=== PATIENT | male | born 1950 | race Caucasian/White ===

== ENCOUNTER → 2016-06-09 | Outpatient (CLI) | payer MEDICARE, OTHER ==
[~2016-06-09] MED LIST: ACIDOPHILUS1 EACH PO; AFRIN) (GENASAL15 ML NS; AMOX TR-K CLV1 EAC4 PO; B COMPLETE1 EACH PO; CALCIUM 600 +1 EAC6 PO; COLACE100 MG PO; COPPER2 M1 PO; DELTASONE10 MG PO; ENTERAGAM POWDER5 GM PO; ENTOCORT 3 MG3 MG PO; FLONASE 50 MCG/16 GM NOSE; HYTRIN **IA 9/2 MG PO; K-TAB ER10 MEQ PO; LASIX40 MG PO; MEN'S MULTI-VI1 EACH PO; NORCO 5-325 TA1 EACH PO; VITAMIN A10000 UNIT PO; VITAMIN B-12500 MCG PO; VITAMIN D-32000 UNI1 PO; VITAMIN D3 PO; ZINCATE (50 MG220 MG PO
== END | disposition disaster alternative care site (69) ==
LOC: GRAD 15:26
DX: J32.9 Chronic sinusitis, unspecified (principal); J32.4 Chronic pansinusitis

== ENCOUNTER 2016-07-10 05:58 | Observation (INO) | payer MEDICARE, OTHER ==
[~2016-07-10] VITALS: Ht 175.3 cm; Wt 64.6 kg
--- NOTE | ~2016-07-10 | OR ---
PATIENT'S NAME: EVANS GORMAN [facility] AGE: 65 Y [address] ROOM: [place] [address] LOCATION: [facility] – [place] ADMIT DATE: 07/10/2016 OR/Procedure Report DISCHARGE DATE: FAMILY PHYSICIAN: Shakir Mcrae MD ATTENDING PHYSICIAN: LEILA DAILY SURGEON: Leila Daily MD STAGING TECHNICIAN: None. DATE OF PROCEDURE: 07/10/2016 PREOPERATIVE DIAGNOSES: 1. Chronic pansinusitis. 2. Chronic lymphocytic leukemia. POSTOPERATIVE DIAGNOSES: 1. Chronic pansinusitis. 2. Chronic lymphocytic leukemia. PROCEDURES PERFORMED: 1. Endoscopic bilateral maxillary antrostomies with tissue removal. 2. Bilateral frontal sinusotomies with tissue removal. 3. Bilateral total ethmoidectomies. 4. Bilateral sphenoidotomies with tissue removal. 5. Placement of bilateral Propel mini stents in the frontal recesses. 6. Stealth navigation. ANESTHESIA: General endotracheal. COMPLICATIONS: None. BLOOD LOSS: 400 mL. SPECIMEN: Sinus contents, left and right. FINDINGS: Minimal blood loss for the first half of the case; however, blood loss became more excessive near the lateral portion of the case. This did not preclude completion of all necessary parts of the case. INDICATION: The patient is a 65-year-old male with a history of chronic pansinusitis and chronic cough, who was identified by his ip counsel to have chronic sinus disease and referred for further workup. We identified significant pansinus disease on CT scanning and discussed surgical treatment in addition to medications. The patient provided informed consent for this. DESCRIPTION OF PROCEDURE: The patient was brought from the preoperative area to the operating suite and placed on table in supine position. All pressure PATIENT'S NAME: EVANS GORMAN [facility] AGE: 65 Y [address] ROOM: [place] [address] LOCATION: [facility] [place] ADMIT DATE: 07/10/2016 OR/Procedure Report DISCHARGE DATE: FAMILY PHYSICIAN: Shakir Mcrae MD ATTENDING PHYSICIAN: LEILA DAILY points were padded. Time-out was performed correctly identifying the patient and procedure. General endotracheal anesthesia was initiated. The Bix navigation system was applied and calibrated. The nose was prepped with injection of 1% lidocaine along the nasal spine and the bilateral angular artery areas. Thereafter, cocaine 4% soaked pledgets were placed on each side of the nose and allowed to soak. The patient was prepped and draped in a clean fashion. Injection was then performed on each side with 1% lidocaine with epinephrine in three spots on each side; at the insertion of the middle turbinate, at the root of the middle turbinate, and along the inferior portion of the middle turbinate itself. The left-sided pledgets were removed, and we began with medialization of the middle turbinate. The uncinate process was taken down with sharp and powered instrumentation. The true maxillary ostium was identified and widened. A very wide maxillary antrostomy was created. There was polypoid disease within the maxillary sinus as well as thick purulence which was suctioned and cultured. Hydrodebridement was performed until the sinus was clean. We then turned our attention to the anterior ethmoids which were taken down followed by the posterior ethmoids. The Onodi cell was identified and opened. The true sphenoid os was then opened medial and inferior to this. Widening was performed. We then left pledgets and turned to the right side. The right side was performed in the exact same fashion. The middle turbinate was medialized. The uncinate process taken down. The maxillary antrum widened and thick mucus, purulence, and hypertrophied mucosa was taken down in the maxillary sinus. The anterior ethmoids were then taken down. Followed by the posterior ethmoids, and thereafter, the sphenoid os on the right side. A wide sphenoid os was created. The inferior one-third of the superior turbinate was resected on each side. The remainder of the turbinates left in place. A pledget were then left on this side, soaked in Afrin and we returned to the left side. Removing the pledget, further dissection was performed with the posterior ethmoid cells along the skull base coming from posterior to anterior. Ultimately, a 70 degree telescope was utilized in combination of a sharp and powered instrumentation to take down the agger nasi cell and identified the frontal recess which was widened without circumferential dissection. Draf IIb type procedure was performed on this side. A pledget was left and the right side was addressed in the same fashion. After both frontal sinuses were opened and thick tissue and purulence removed, final attention was turned towards widening the maxillary antrostomy fully cleaning up the ethmoid cavities and ensuring hemostasis with a combination of irrigation, Afrin pledgets, and a short amount of use of suction cautery on the left superior turbinate remnant. There was no violation of the lamina papyracea and no noted CSF leak. Thorough irrigation was performed once again. Thereafter, mini Propel stents were left in the frontal sinuses bilaterally in the recess. Thereafter, FloSeal was placed into both anterior and posterior ethmoid cavities followed by MeroPacks soaked in Kenalog 40 PATIENT'S NAME: EVANS GORMAN [facility] AGE: 65 Y [address] ROOM: [place] [address] LOCATION: [facility] [place] ADMIT DATE: 07/10/2016 OR/Procedure Report DISCHARGE DATE: FAMILY PHYSICIAN: Shakir Mcrae MD ATTENDING PHYSICIAN: LEILA DAILY mg/mL, a total of 2 mL. A through and through mattressing plain gut suture was placed through the middle turbinates to medialize these and this concluded the case. An OG tube was passed into the belly, suctioning was performed. The patient was then returned to the care of Anesthesia for extubation and transferred to the recovery room in stable condition. LEILA DAILY MD MJ/modl /[id number] d: 07/11/16 0003 t: 07/11/16 1059, OPERATIVE SUMMARY
[~2016-07-10 05:58] MED LIST changes: -ACIDOPHILUS1 EACH PO; -AFRIN) (GENASAL15 ML NS; -COLACE100 MG PO; -ENTERAGAM POWDER5 GM PO; -LASIX40 MG PO; -MEN'S MULTI-VI1 EACH PO; -NORCO 5-325 TA1 EACH PO
[2016-07-10 06:56] LABS: BASOPHIL % 0.2 %; HEMATOCRIT 30.2 % (37.0-53.0); HEMOGLOBIN 9.9 g/dL (11.0-16.0); IMMATURE GRANULOCYTE # 0.1 K/uL (0.0-0.3); IMMATURE GRANULOCYTE % 1.5 %; LYMPHOCYTE # 0.7 K/uL (0.8-4.0); LYMPHOCYTE % 16.5 %; MCH 30.7 pg (27.0-34.0); MCHC 32.8 gm/dL (32.0-36.5); MCV 93.8 fl (83.0-98.0); MONOCYTE # 0.4 K/uL (0.0-1.0); MONOCYTE % 8.9 %; MPV 9.9 fl (9.4-12.4); NEUTROPHIL % 72.9 %; NRBC % 0 /100WBC (0-0.00); RBC 3.22 M/uL (3.50-5.50); RDW-CV 14.4 % (11.9-14.6); WBC 4.1 K/uL (4.0-11.0)
[2016-07-10 07:03] LABS: PLATELET COUNT 43 K/uL (150-450)
[2016-07-10] MEDS ORDERED: MEN'S MULTI-VI1 EACH PO (07:18)
[2016-07-10] MEDS ORDERED: ACIDOPHILUS1 EACH PO (07:24)
[2016-07-10] MEDS ORDERED: LASIX40 MG PO (07:26)
[2016-07-10] MEDS ORDERED: ENTERAGAM POWDER5 GM PO (07:27)
[2016-07-10 16:10] LABS: HEMATOCRIT 28.4 % (37.0-53.0); HEMOGLOBIN 9.3 g/dL (11.0-16.0); MCH 31.3 pg (27.0-34.0); MCHC 32.7 gm/dL (32.0-36.5); MCV 95.6 fl (83.0-98.0); MPV 10.1 fl (9.4-12.4); RBC 2.97 M/uL (3.50-5.50); RDW-CV 14.8 % (11.9-14.6); WBC 4.8 K/uL (4.0-11.0)
[2016-07-10 16:12] LABS: PLATELET COUNT 63 K/uL (150-450)
[2016-07-10 16:21] LABS: ANION GAP 9.3 (10.0-19.0); BLOOD UREA NITROGEN 7 mg/dL (6-24); CALCIUM 7.1 mg/dL (8.5-10.5); CHLORIDE 111 mMol/L (96-110); CO2 28 mMol/L (22-32); CREATININE 0.6 mg/dL (0.6-1.3); ESTIMATED GFR (MDRD EQUATION) > 60; POTASSIUM 3.3 mMol/L (3.7-5.1); SODIUM 145 mMol/L (135-145)
[2016-07-10 16:39] LABS: ABSOLUTE NEUTROPHIL CT (ANC) 4.4 K/uL (1.4-9.0); BANDED NEUTROPHIL # 0.2 K/uL (0.0-0.1); BANDED NEUTROPHILS % 4 %; LYMPHOCYTE # 0.3 K/uL (0.8-4.0); LYMPHOCYTE % 7 %; SEGMENTED NEUTROPHIL # 4.2 K/uL (1.4-9.0); SEGMENTED NEUTROPHIL % 87 %
--- NOTE | 2016-07-11 04:04 | NUR ---
POD#1 SINUS SURGERY, NASAL PASSAGES PACKED AND AFRIN SPRAY INITATED @[facility] LAST NIGHT, PATIENT STATES DRAINAGE DOWN BACK OF THROAT AND SPITS OUT BLOODY DRAINAGE INTO EMESIS BAG, GAUZE DSG CHANGED X3 THIS SHIFT LAST @0300. GOOD PO INTAKE/OUTPUT AND BM THIS SHIFT. UP WITH SBA/GAIT BELT AND WALKED THIS AM IN THE HALLS WITH STAFF. STATES NO PAIN TO SINUS AREA ONLY TO LOWER BACK DUE TO BED BUT RATES <3/10 AND REFUSES PAIN MEDICATIONS FOR THIS NURSE. RFA & LFA PIVS SALINE LOCKED. VS WNL AND ON RA. DC HOME TODAY IF CLEARED BY SURGEON.
[2016-07-11 06:11] LABS: BASOPHIL % 0.1 %; HEMATOCRIT 30.3 % (37.0-53.0); IMMATURE GRANULOCYTE # 0.1 K/uL (0.0-0.3); IMMATURE GRANULOCYTE % 1.1 %; LYMPHOCYTE # 0.6 K/uL (0.8-4.0); LYMPHOCYTE % 6.9 %; MCH 31.2 pg (27.0-34.0); MCV 94.4 fl (83.0-98.0); MONOCYTE # 0.3 K/uL (0.0-1.0); MONOCYTE % 3.1 %; MPV 10.1 fl (9.4-12.4); NEUTROPHIL # (ANC) 8.3 K/uL (1.4-9.0); NEUTROPHIL % 88.8 %; NRBC % 0 /100WBC (0-0.00); PLATELET COUNT 73 K/uL (150-450); RBC 3.21 M/uL (3.50-5.50); WBC 9.3 K/uL (4.0-11.0)
[2016-07-11] MEDS ORDERED: COLACE100 MG PO (12:53)
[2016-07-11] MEDS ORDERED: AFRIN) (GENASAL15 ML NS (12:54)
[2016-07-11] MEDS ORDERED: NORCO 5-325 TA1 EACH PO (12:56)
--- NOTE | 2016-07-11 14:00 | NUR ---
DISCHARGE: Explained discharge instructions, education on FESS surgery, and new medication education for [place], Afrin, and colace. No questions or concerns, verbalized understanding of teaching. in room during instruction. Left with all belongings and prescriptions. IV removed by primary nurse. Taken to front door by aide and driven home by .
--- NOTE | 2016-07-11 14:59 | NUR ---
Significant Event: PT DISMISSED TO HOME WITH SPOUSE. PT WAS UP INDEPENDENTLY IN ROOM. HE HAD SOME BLOODY DRAINAGE FROM NOSE. DRIP PAD UNDER NOSE. PT IRRIGATED NOSTRILS PER DR. ORDER. NO PAIN MED GIVEN.
--- NOTE | 2016-07-11 15:01 | NUR ---
CHARTING AND ASSESSMENT FINDINGS BY Amy VENEGAS HAVE BEEN REVIEWED AND AGREE WITH ASSESSMENT FINDINGS.
== END 2016-07-11 14:10 | disposition disaster alternative care site (69) ==
LOC: GSDC 05:58 → GMSU 17:56 → GSDC 17:57 → GMSU 17:57 → GSDC 07-11 14:10 → GMSU 07-11 14:10
PROVIDERS: ADMIT Otolaryngology
PROC: 099R4ZZ Drainage of Left Maxillary Sinus, Percutaneous Endoscopic Approach (ICD-10-PCS; principal; 2016-07-10)
PROC: 099Q4ZZ Drainage of Right Maxillary Sinus, Percutaneous Endoscopic Approach (ICD-10-PCS; 2016-07-10)
PROC: 09QT4ZZ Repair Left Frontal Sinus, Percutaneous Endoscopic Approach (ICD-10-PCS; 2016-07-10)
PROC: 09QS4ZZ Repair Right Frontal Sinus, Percutaneous Endoscopic Approach (ICD-10-PCS; 2016-07-10)
PROC: 09TV4ZZ Resection of Left Ethmoid Sinus, Percutaneous Endoscopic Approach (ICD-10-PCS; 2016-07-10)
PROC: 09TU4ZZ Resection of Right Ethmoid Sinus, Percutaneous Endoscopic Approach (ICD-10-PCS; 2016-07-10)
PROC: 099X4ZZ Drainage of Left Sphenoid Sinus, Percutaneous Endoscopic Approach (ICD-10-PCS; 2016-07-10)
PROC: 099W4ZZ Drainage of Right Sphenoid Sinus, Percutaneous Endoscopic Approach (ICD-10-PCS; 2016-07-10)
DX: J32.4 Chronic pansinusitis (principal); C91.10 Chronic lymphocytic leukemia of B-cell type not having achieved remission; E78.5 Hyperlipidemia, unspecified; E87.6 Hypokalemia; Z90.49 Acquired absence of other specified parts of digestive tract; Z98.890 Other specified postprocedural states
CPT/HCPCS: A9270; C2625; G0378; J0171; J1100; J2405; J3301; J7030; J7040; J7120; P9035